=== PATIENT | male | born 1985 | race Hispanic/Latino ===

== ENCOUNTER 2019-07-21 23:58 | Emergency (ER) | payer SELFPAY ==
[2019-07-22] MEDS ORDERED: KETOROLAC TROMETHAMINE 30MG/ML ONE (02:15)
== END 2019-07-22 03:02 | disposition home or self-care (01) ==
LOC: EDH 23:58
DX: R51 Headache (principal); M62.830 Muscle spasm of back; F14.10 Cocaine abuse, uncomplicated; Z72.0 Tobacco use
CPT/HCPCS: 96374; 99283; J1885